=== PATIENT | male | born 1950 | race Caucasian/White ===

== ENCOUNTER → 2019-03-18 08:55 | Outpatient (BNVA) | payer MEDICARE, OTHER, SELFPAY | PROVIDERS: Family Provider Family Medicine; PCP Family Medicine; Visit Provider Urology | DX: Z12.5 Encounter for screening for malignant neoplasm of prostate (principal); N39.9 Disorder of urinary system, unspecified; N42.89 Other specified disorders of prostate; N43.3 Hydrocele, unspecified | CPT/HCPCS: 81001 ==

== ENCOUNTER → 2021-06-20 10:44 | Outpatient (BNVA) | payer MEDICARE, OTHER, SELFPAY | PROVIDERS: Family Provider Family Medicine; PCP Family Medicine; Visit Provider Family Medicine | DX: Z00.00 Encounter for general adult medical examination without abnormal findings (principal); Z13.220 Encounter for screening for lipoid disorders; E55.9 Vitamin D deficiency, unspecified; N40.0 Benign prostatic hyperplasia without lower urinary tract symptoms; Z12.5 Encounter for screening for malignant neoplasm of prostate | CPT/HCPCS: 80053; 80061; 82306; 83036; 84153; 85025 ==

== ENCOUNTER 2021-07-18 13:25 | Outpatient (CLI) | payer MEDICARE, OTHER, SELFPAY ==
--- NOTE | 2021-07-18 13:42 | CT_ITS ---
WS: [id number] CT ABDOMEN WITH CONTRAST HISTORY: LIVER MASS/HEPATIC HEMANGIOMA Contiguous dual phase 5 mm axial imaging performed to the abdomen. Oral contrast has been provided. C oronal and sagittal reformats are submitted. All CT scans at [facility] use at least one of t hese dose optimization techniques: automated exposure control; mA and/or kV adjustment per patient si ze (includes targeted exams where dose is matched to clinical indication); or iterative reconstructio n. CONTRAST: Visipaque 320; 50 mL IV. DLP: 1427.64 mGy.cm COMPARISON: 11/11/2018 Lower thorax: Mild dependent changes at the lung bases. Mild enlargement of the heart. Small hiatal h ernia. Liver: Liver is enlarged and mildly heterogeneous with decreased attenuation suggesting hepatic steat osis. There is a very vague and difficult to visualize area of decreased attenuation in the inferior RIGHT lobe of liver measuring 2.0 x 1.9 cm. This corresponds in size and location to the previously d escribed hemangioma. On today's imaging study this is very difficult to visualize and does not follow typical hemangioma pattern. This does become less apparent on the more delayed imaging. Gallbladder: Normal. Pancreas: Normal. Spleen: Normal. Adrenals: Normal. Right kidney: Normal. Left kidney: Normal. Aorta: Mild atherosclerosis aorta. GI tract: Moderate distention of the stomach with oral contrast. The visualized colon demonstrates mo derate fecal retention and constipation. No obstructive pattern. No adenopathy or free fluid. Abdominal wall: No hernia. Visualized osseous structures: Unremarkable. CT/CT abdomen w con* [id number] IMPRESSION: 1. Evaluation of the liver and the hepatic hemangioma is suboptimal. I believe in part this is due to the poor bolus injection of contrast and only limited a mount of contrast injected. Visually the hemangioma in the RIGHT lobe the liver has not significantly increased in size. Suggest interval hemangiomas CT follo w-up in 3-4 months with a better contrast bolus and 100 cc of contrast to be ut ilized. 2. Small hiatal hernia. 3. Constipation.
[2021-07-18] MEDS: iodixanol 320 mg/mL 100mL Btl IV (15:43)
== END 2021-07-18 13:26 | disposition home or self-care (01) ==
PROVIDERS: PCP Family Medicine; Visit Provider Family Medicine
DX: D18.03 Hemangioma of intra-abdominal structures (principal); K76.89 Other specified diseases of liver; K44.9 Diaphragmatic hernia without obstruction or gangrene; K59.00 Constipation, unspecified
CPT/HCPCS: 74160

== ENCOUNTER 2021-11-14 08:41 | Outpatient (CLI) | payer MEDICARE, OTHER, SELFPAY ==
[2021-11-14 09:39] LABS: Blood Urea Nitrogen 15 mg/dL (8-23)
--- NOTE | 2021-11-14 09:45 | CT_ITS ---
WS: [id number] CT ABDOMEN WITH CONTRAST HISTORY: Liver hemangioma Dual phase 5 mm axial imaging performed to the abdomen. Oral contrast has not been provided. Coronal and sagittal reformats are submitted. All CT scans at [facility] use at least one of these do se optimization techniques: automated exposure control; mA and/or kV adjustment per patient size (inc ludes targeted exams where dose is matched to clinical indication); or iterative reconstruction. CONTRAST: Omnipaque 350; 95 mL IV. DLP: 1584.36 mGy.cm COMPARISON: 07/18/2021 Lower thorax: Unremarkable. Liver: Normal size liver. Mass was peripheral venous puddling reidentified in the RIGHT lobe the live r measures 1.8 x 1.6 cm. On the delayed imaging nearly completely isoechoic to the liver with mild in creased enhancement. No additional abnormality identified. Much better evaluation today than on the p rior study was 07/18/2021. Typical for a hemangioma. Gallbladder: Normal. Pancreas: Normal. Spleen: Normal. Adrenals: Normal. Right kidney: Normal. Left kidney: Normal. Aorta: Mild atherosclerosis. GI tract: Normally distended stomach. Visualized small bowel and colon negative for acute abnormality . Mild constipation. No adenopathy or free fluid. Abdominal wall: Small hiatal hernia. Visualized osseous structures: Unremarkable. CT/CT abdomen w con* [id number] IMPRESSION: 1. RIGHT hepatic hemangioma stable in size since 2014. No additional imaging w orkup necessary. 2. Negative gallbladder.
[2021-11-14] MEDS: iohexol 350 mg/mL 100 mL Btl IV (09:58)
== END 2021-11-14 08:42 | disposition home or self-care (01) ==
LOC: RAD 08:42
PROVIDERS: PCP Family Medicine; Visit Provider Family Medicine
DX: D18.03 Hemangioma of intra-abdominal structures (principal); K59.00 Constipation, unspecified
CPT/HCPCS: 74160; 82565; 84520

== ENCOUNTER → 2022-12-14 09:22 | Outpatient (BNVA) | payer MEDICARE, OTHER, SELFPAY | PROVIDERS: PCP Family Medicine; Visit Provider Family Medicine | DX: Z51.81 Encounter for therapeutic drug level monitoring (principal); E78.5 Hyperlipidemia, unspecified; Z13.220 Encounter for screening for lipoid disorders; R35.0 Frequency of micturition; E55.9 Vitamin D deficiency, unspecified; D18.03 Hemangioma of intra-abdominal structures; N43.3 Hydrocele, unspecified; N42.89 Other specified disorders of prostate | CPT/HCPCS: 80053; 80061; 82306; 84153; 85025 ==

== ENCOUNTER 2023-08-31 10:12 | Outpatient (CLI) | payer MEDICARE, OTHER, SELFPAY ==
--- NOTE | 2023-08-31 11:00 | US_ITS ---
WS: [id number] SCROTAL ULTRASOUND EXAMINATION CLINICAL INFORMATION: Swelling and pain in scrotum - h/o hydrocele COMPARISON: 2019 FINDINGS: TESTES Normal in size and echotexture, without focal lesion. Color Doppler: Normal color Doppler flow pattern. Right testes size: 4.2 cm x 3.2 cm x 2.2 cm. Left testes size: 3.4 cm x 3.2 cm x 2.5 cm. EPIDIDYMIDES Not well visualized bilaterally HYDROCELE Complex hydrocele with internal debris Right scrotum 7.9 x 7.2 x 4,2cm increased from previous with n ew internal debris likely hemorrhagic or proteinaceous. Mild compression RIGHT testicle Small simple left hydrocele VARICOCELE None. OTHER FINDINGS None. US/US scrotum [id number] IMPRESSION: 1. Complex hydrocele with internal debris Right scrotum 7.9 x 7.2 x 4,2cm incr eased from previous with new internal debris likely hemorrhagic or proteinaceou s. Recommend correlation for infection 2. Small simple left hydrocele
== END 2023-08-31 10:13 | disposition home or self-care (01) ==
PROVIDERS: PCP Family Medicine; Visit Provider Family Medicine
DX: N50.82 Scrotal pain (principal); N43.3 Hydrocele, unspecified
CPT/HCPCS: 76870

== ENCOUNTER → 2024-07-01 13:14 | Outpatient (BNVA) | payer MEDICARE, OTHER, SELFPAY | PROVIDERS: PCP Family Medicine; Visit Provider Family Medicine | DX: Z00.00 Encounter for general adult medical examination without abnormal findings (principal); R35.0 Frequency of micturition; S40.869A Insect bite (nonvenomous) of unspecified upper arm, initial encounter; W57.XXXA Bitten or stung by nonvenomous insect and other nonvenomous arthropods, initial encounter; Z51.81 Encounter for therapeutic drug level monitoring; Z12.5 Encounter for screening for malignant neoplasm of prostate | CPT/HCPCS: 80053; 84153; 85025; 86618; 86666; 86757 ==

== ENCOUNTER 2024-08-05 09:54 | Outpatient (CLI) | payer MEDICARE, OTHER, SELFPAY ==
--- NOTE | 2024-08-05 10:30 | US_ITS ---
WS: [id number] RIGHT UPPER QUADRANT ULTRASOUND HISTORY: Elevated LFT's COMPARISON: 12/19/2016 Liver: 17.1 cm in length. Normal liver. Previously described liver mass is not evident on today's exam. No intrahepatic duct dilatation. Portal Vein: Normal hepatopetal flow with monophasic waveform. Gallbladder: Normally distended gallbladder with no stones or wall thickening. CBD: 0.5 cm Pancreas: Limited. Right kidney: 11.4 cm in length. Normal size and echogenicity. No hydronephrosis or mass. Aorta and IVC: Unremarkable abdominal aorta and IVC. No ascites. US/US liver [id number] IMPRESSION: 1. Normal gallbladder. 2. Normal common bile duct. 3. Negative liver. Previously described hepatic hemangioma is not identified alma valdes.
== END 2024-08-05 09:55 | disposition home or self-care (01) ==
PROVIDERS: PCP Family Medicine; Visit Provider Family Medicine
DX: R74.01 Elevation of levels of liver transaminase levels (principal); D18.03 Hemangioma of intra-abdominal structures
CPT/HCPCS: 76705

== ENCOUNTER → 2024-09-11 10:07 | Outpatient (BNVA) | payer MEDICARE, OTHER, SELFPAY | PROVIDERS: PCP Family Medicine; Visit Provider Family Medicine | DX: D64.9 Anemia, unspecified (principal); R74.01 Elevation of levels of liver transaminase levels; R53.81 Other malaise; R53.83 Other fatigue | CPT/HCPCS: 82390; 82728; 83516; 83550; 83615; 84443; 86038; 86803; 87340 ==